=== PATIENT | male | born 1955 | race Caucasian/White ===

== ENCOUNTER 2017-11-11 13:34 | Emergency (ER) | payer OTHER ==
[~2017-11-11] VITALS: Ht 180.3 cm; Wt 77.1 kg
--- NOTE | 2017-11-11 13:40 | ED CARDIAC/CP/PALPITATIONS ---
History of Present Illness General Chief Complaint: General Adult Stated Complaint: S/P CARDIAC ARREST @ PACU Source: patient, PACU STAFF Exam Limitations: no limitations Vital Signs & Intake/Output Vital Signs & Intake/Output Vital Signs Date Time Temp Pulse Resp B/P B/P Pulse O2 O2 Flow FiO2 Mean Ox Delivery Rate 11/11 1350 77 142/97 11/11 1341 95.5 77 18 142/97 97 Non 10L ReBreather Allergies Coded Allergies: corn syrup (UNKNOWN 11/11/17) Triage Nurses Notes Reviewed? yes Onset: Abrupt Duration: minute(s): (few) Timing: single episode today Location: central Activities at Onset: POST OP HPI: 62 year old male who presents after transfer from PACU s/p ventricular fibrillation arrest, defibrillation x 1. 12 lead EKG revealed acute ST elevation in the lateral leads. Patient was there for elective hernia surgery and while in the PACU he developed chest pain and then staff saw him put his head backwards, eyes rolled back and he became unresponsive. Patient arrives, awake, alert, with current complaint of chest pain. Nitro patch was placed prior to transport to ED. Past History Travel History Traveled to [place] past 21 day No Medical History Any Pertinent Medical History? see below for history Gastrointestinal: INGUINAL HERNIAs Surgical History Surgical History: none Psychosocial History What is your primary language Occitan Family History Hx Contributory? No Review of Systems Review of Systems Constitutional: Denies: chills, fever. EENTM: Reports: no symptoms. Respiratory: Reports: no symptoms. Cardiovascular: Reports: chest pain. GI: Reports: no symptoms. Genitourinary: Reports: no symptoms. Musculoskeletal: Reports: no symptoms. Skin: Reports: no symptoms. Neurological/Psychological: Reports: anxiety. Hematologic/Endocrine: Reports: no symptoms. Immunologic/Allergic: Reports: no symptoms. All Other Systems: Reviewed and Negative Physical Exam Physical Exam General Appearance: well developed/nourished, alert, awake, anxious, mild distress, moderate distress Head: atraumatic, normal appearance Eyes: Bilateral: normal appearance, PERRL. Ears, Nose, Throat: normal pharynx, hearing grossly normal Neck: normal inspection, supple, full range of motion Respiratory: normal breath sounds, chest non-tender, no respiratory distress Cardiovascular: regular rate/rhythm Peripheral Pulses: 2+ radial (R), 2+ radial (L) Gastrointestinal: normal bowel sounds, soft, non-tender Extremities: normal inspection, normal capillary refill, normal range of motion, no edema Neurologic/Psych: no motor/sensory deficits, awake, alert, oriented x 3 Skin: intact, normal color, warm/dry Core Measures ACS in differential dx? Yes CVA/TIA Diagnosis No Sepsis Present: No Sepsis Focused Exam Completed? No Progress Differential Diagnosis: AMI, aortic dissection Plan of Care: Orders Procedure Date/time Status TROPONIN LEVEL 11/11 1339 Active PARTIAL THROMBOPLASTIN TIME 11/11 1339 Active PROTHROMBIN TIME 11/11 1339 Active EKG 11/11 1336 Active Laboratory Tests 11/11/17 1348: Troponin I Pending, PT Pending, INR Pending, APTT Pending PATIENT EVALUATED BY DR TRIPATHI ON ARRIVAL. BRILITA, HEPARIN, ASPIRIN ADMINISTERED. TRANSFERRED TO [facility]. Initial ED EKG: NSR, ST elevation (lateral leads) Rhythm Strip: normal sinus rhythm Comments: PATIENT: AIYANA VALENTINE PRESENT AGE: 62 PATIENT ACCOUNT NO: [id number] : 55 LOCATION: [facility] ORDERING PHYSICIAN: Gael Clement MD SERVICE DATE: 11/11/17 EXAM TYPE: RAD - XRY-PORTABLE CHEST XRAY EXAMINATION: XR PORTABLE CHEST CLINICAL INFORMATION: Postoperative COMPARISON: None TECHNIQUE: Portable frontal view of the chest was obtained and reviewed with Dr. Clement. FINDINGS: Lungs are well expanded and clear. No pulmonary edema, consolidation or pneumothorax. Cardiac silhouette is enlarged. The hilar contours are normal. There is a postoperative pneumoperitoneum. IMPRESSION: 1. Cardiomegaly. 2. No acute pulmonary findings. 3. Postoperative pneumoperitoneum. DICTATED BY: Jim Head MD DATE/TIME DICTATED:11/11/171435 RESIDENT INTERN:TRENTON DATE/TIME TRANSCRIBED:11/11/171435 CONFIDENTIAL, DO NOT COPY WITHOUT APPROPRIATE AUTHORIZATION. <Electronically signed in Other Vendor System> SIGNED BY: Jim Head MD 11/11/17 1442 Departure Departure Time of Disposition: 1352 Disposition: OTHER [facility] (ACUTE) Condition: Stable Clinical Impression Primary Impression: STEMI (ST elevation myocardial infarction) Referrals: Rafal Washburn MD (PCP/Family) Departure Forms: Customer Survey General Discharge Information Critical Care Note Critical Care Note Critical Care Time: 30-74 min
[2017-11-11 13:50] VITALS: BP 142/97
[2017-11-11 14:03] LABS: PT 11.8 SEC (9.4-12.5); PTT 29 SEC (25-37)
--- NOTE | 2017-11-11 14:48 | Cons- Cardiology ---
General Information and HPI Consulting Request Date of Consult: 11/11/17 Requested By: Dr Charles Reason for Consult: VF arrest with acute lateral SC Source of Information: patient, old records History of Present Illness: The patient is a 62 year old male with no apparent medical history who follows with Dr. Washburn as his primary physician. The patient was in [place] today for hernia repair surgery which was performed uneventfully. The patient was returned to the recovery ro and was initially stable, conversing with his family when he became acutely unresponsive and suffered a VF arrest. He was successfully resuscitated but then had multiple runs of NSVT and NSSVT. He also noted persistent chest pressure post event and his ECG showed evidence of an acute lateral wall SC. THe patient was transferred to the ER with plans for subsequent emergent transfer to the [facility] analyst microbiology lab. Allergies/Medications Allergies: Coded Allergies: corn syrup (UNKNOWN 11/11/17) Current Medications: Current Medications Sig/Cindi Start time Last Medication Dose Route Stop Time Status Admin Aspirin 0 .STK-MED ONE 11/11 1348 DC PO Aspirin 0 .STK-MED ONE 11/11 1346 DC PO Aspirin 325 MG ONCE ONE 11/11 1345 DCD 11/11 PO 11/11 1346 1347 Heparin Sodium 0 .STK-MED ONE 11/11 1346 DC (Porcine) .ROUTE Heparin Sodium 5,000 UNIT ONCE ONE 11/11 1345 DCD 11/11 (Porcine) IV 11/11 1346 1347 Metoprolol Tartrate 0 .STK-MED ONE 11/11 1353 DC IV Metoprolol Tartrate 5 MG ONCE ONE 11/11 1345 DCD / IV 11/11 1346 1350 Ticagrelor 0 .STK-MED ONE 11/11 1346 DC PO Ticagrelor 180 MG ONCE ONE 11/11 1345 DCD 11/11 PO 11/11 1346 1347 Past History Travel History Traveled to [place] past 21 day No Medical History Neurological: NONE EENT: NONE Cardiovascular: NONE Respiratory: NONE Gastrointestinal: INGUINAL HERNIAs Hepatic: NONE Renal: NONE Musculoskeletal: NONE Psychiatric: NONE Endocrine: NONE Blood Disorders: NONE Cancer(s): NONE REFRACTIVE SURGEON/Reproductive: NONE Surgical History Surgical History: non-contributory, 1 Family History Family History Reviewed? father at 52 of SC Exam & Diagnostic Data Vital Signs and I&O Vital Signs Date Time Temp Pulse Resp B/P B/P Pulse O2 O2 Flow FiO2 Mean Ox Delivery Rate 11/11 1350 77 142/97 11/11 1341 95.5 77 18 142/97 97 Non 10L ReBreather Intake & Output 11/11 1600 11/11 0800 11/11 0000 11/10 1600 11/10 0800 11/10 0000 Intake Total 100 Output Total Balance 100 Intake, IV 100 Patient 170 lb Weight Weight Reported by Patient Measurement Method Physical Exam: General : WD, WN , WM, alert and oriented HEENT: normal Neck: normal Chest: Clear bilaterally, Minimal chest wall tenderness. Heart: Regular S1, S2, 1/6 systolic murmur Abdomen: post op changes EXT: normal PV: normal Labs/Ramy Results: Laboratory Tests 11/11 1348 Chemistry Troponin I (<0.11 ng/ml) 0.03 Coagulation PT (9.4 - 12.5 SEC) 11.8 INR (0.90 - 1.17) 1.13 APTT (25 - 37 SEC) 29 Diagnostic Data EKG Results NSR with ST elevation in I. L. and V5-[address] depression in III, F and V2-4 Assessment/Plan Assessment/Plan Assessment: 1. VF arrest with subsequent non sustained SVT and VT with evidence of acute lateral SC on ECG with ST depression in V2-4 post hernia repair. 2. Family history of CAD Recommendations: - Discussed in detail with family and patient - Transfer to [facility] analyst microbiology lab - All appropriate medication given. Consult Acknowledgment - Thank you for your consult request.
== END 2017-11-11 13:53 | disposition short-term general hospital (02) ==
LOC: ERH 13:34
PROVIDERS: Emergency Medicine
DX: I21.3 ST elevation (STEMI) myocardial infarction of unspecified site (principal); R07.9 Chest pain, unspecified
CPT/HCPCS: 93005; 93010; 96374; 96375; 99291; J1644; J3490

== ENCOUNTER → 2017-11-11 | Day surgery (SDC) | payer OTHER ==
[~2017-11-11] VITALS: Ht 180.3 cm; Wt 77.1 kg
--- NOTE | 2017-11-11 14:42 | RADIOLOGY REPORT ---
EXAMINATION: XR PORTABLE CHEST CLINICAL INFORMATION: Postoperative COMPARISON: None TECHNIQUE: Portable frontal view of the chest was obtained and reviewed with Dr. Clement. FINDINGS: Lungs are well expanded and clear. No pulmonary edema, consolidation or pneumothorax. Cardiac silhouette is enlarged. The hilar contours are normal. There is a postoperative pneumoperitoneum. IMPRESSION: 1. Cardiomegaly. 2. No acute pulmonary findings. 3. Postoperative pneumoperitoneum.
--- NOTE | 2017-11-15 09:46 | Operative Report ---
Operative/Inv Procedure Report Surgery Date: 11/11/17 Name of Procedure: Lap RIH c mesh,TEPP mesh repair o fumbilical hernia Pre-Operative Diagnosis: Umbilical and right inguinal hernias Post-Operative Diagnosis: Same Estimated Blood Loss: scant Surgeon/Seed Analysis Laboratory Assistant: Racquel MARIO,Gael CRUZ Anesthesia: general endotracheal tube Operative/Procedure Note Note: Patient was positioned supine on the table. After successful induction of general anesthesia the inguinal and surrounding areas were clipped prepped and draped in the usual sterile fashion. After injection of local anesthetic at the bottom of the umbilicus off the midline to the right, a 1 1/2 cm curved incision was made with a 15 blade, then deepened through Elmer's fascia, sweeping off the rectus sheath. A horizontal 1-1/2 cm incision was made between the fibers, elevating these edges with 0 Vicryl stay sutures. Then retracting the muscle laterally, clearing off the posterior rectus sheath, this space is developed down the midline to the pubis sequentially, with an S retractor, a peanut dissector, then the balloon-camera device, inflating it 30-40 pumps while watching how it opens up the space, keeping the epigastrics up. The balloon is then replaced with a 10 mm Howard trocar, inserted, shortened, and secured with the stay sutures, gas turned on to 12 not 15 mm. Then two 5 mm trochars are inserted in the midline just below the camera, spaced by approximately 3 cm. Using mostly blunt dissection with peanuts to define the anatomy, first Surendra's ligament is swept off medially, checking the medial spaces, direct and femoral. Then we returned to the area medial to the fat pad where the hernia sac was adherent, coursing up just medial to the vein, up through the defect. The hernia sac and contents was reduced and that lip of peritoneum was swept down and proximally to the level of the bladder and off the vas a little laterally. The cord structures form a triangle with the vas approaching medially and the main vessels approaching laterally, with the apex at the deep ring, then from the underlying iliac fat. A Parietex sided mesh with the suture, is marked and stuffed down the camera trocar, then unfurled in a systematic fashion, first with the smaller leaflet passing behind the cord structures, until the flap covers the epigastrics, covering the deep ring, then the larger leaflet is released from the suture, double-covering the smaller one, but also extends laterally out to the iliac crest, medially over Surendra's ligament, and superiorly towards the camera. There is a third part of the mesh, that covers the iliac fat pad like a skirt. The mesh was adjusted back and forth so that the keyhole is centered around the cord, lays flat and the edges are not curling. A trial run of letting the gas escape a little bit to see how the mesh would lay as the peritoneum comes back down is done, then when we're satisfied, we let rest of the gas escape, pulling out the instruments and trochars. The fascia is closed with a [id number] 0 Vicryl suture, tying the stay sutures on top. We used the same umbilical incision for the umbilical hernia repai. This was deepened with cautery and the herniated fat and overlying sac were dissected circumferentially off the fascia, defining the true edges of the defect. It was oriented horizontally, we then inserted the Ventralex coated 4.3 centimeter mesh underneath the defect using the tails to center it and then closed the defect with interrupted 2-0 Maxon sutures in this case 4, incorporating the mesh with each bite. The subcutaneous layer and Elmer's fascia were reapproximated to cover. The incision was irrigated and then we closed the 3 skin incisions with interrupted 4-0 Monocryl, 3 for the umbilical, one each for the smaller ones, followed by Mastisol, Steri-Strips and Band-Aids. Overall estimated blood loss was minimal, lap and sponge counts were correct, wound expectancy was clean, IV fluids crystalloid, complications none, patient tolerated the procedure well, did not significantly steward during extubation and was returned to the recovery room in satisfactory condition. Note while in recovery room after discussing his operation with him and his family at the bedside he suddenly had a V. fib arrest, quickly recovered with CPR and was transferred to the labor mediator for a coronary stent.
== END ==
LOC: STS 03:00
DX: K40.90 Unilateral inguinal hernia, without obstruction or gangrene, not specified as recurrent (principal); K42.0 Umbilical hernia with obstruction, without gangrene; F17.200 Nicotine dependence, unspecified, uncomplicated
CPT/HCPCS: 71045; 93005; 93010; C1781; J0131; J0690; J2250